=== PATIENT | female | born 1975 | race Caucasian/White ===

== ENCOUNTER → 2017-02-20 | Outpatient (CLI) | payer OTHER ==
[2016-03-02 22:00] VITALS: BP 120/69
--- NOTE | 2017-02-20 16:44 | RAD ---
DATE: 02/20/2017 EXAM: MAMMO MARCIE SCREENING BILATERAL HISTORY: Routine screening, family history of breast cancer COMPARISON: 01/26/2016 This study was interpreted with the benefit of Computerized Aided Detection (CAD). FINDINGS: The breast parenchyma demonstrates scattered fibroglandular densities, category B. There are no dominant suspicious masses, suspicious microcalcifications or evidence of architectural distortion. IMPRESSION: Negative mammogram BI-RADS CATEGORY: 1 NEGATIVE RECOMMENDED FOLLOW-UP: 12M 12 MONTH FOLLOW-UP PQRS compliance statement: Patient information was entered into a reminder system with a target due date 02/20/2018 for the next mammogram. Mammography is a sensitive method for finding small breast cancers, but it does not detect them all and is not a substitute for careful clinical examination. A negative mammogram does not negate a clinically suspicious finding and should not result in delay in biopsying a clinically suspicious abnormality. "Our facility is accredited by the [employer] Mammography [employer]."
== END | disposition home or self-care (01) ==
LOC: MAMMO 14:57
PROVIDERS: ATTEND Family Medicine
DX: Z12.31 Encounter for screening mammogram for malignant neoplasm of breast (principal)
CPT/HCPCS: 77063; G0202; 77067

== ENCOUNTER → 2017-02-24 | Outpatient (CLI) | payer OTHER ==
[2016-03-02 22:00] VITALS: BP 120/69
--- NOTE | 2017-02-24 10:58 | RAD ---
Chest, 2 views, 02/24/2017: History: Cough, congestion The heart size and pulmonary vascularity are normal. No pulmonary infiltrates are seen. There is no evidence of pleural fluid. Minimal spurring is present in the spine. IMPRESSION: No acute cardiopulmonary abnormality is detected.
== END | disposition home or self-care (01) ==
LOC: DXRAD 10:16
PROVIDERS: ATTEND Physician Assistant
DX: R05 Cough (principal)
CPT/HCPCS: 71020

== ENCOUNTER 2017-12-17 17:42 | Emergency (ER) | payer OTHER ==
[2017-12-17] MEDS ORDERED: CYCL-331 PO (18:31)
--- NOTE | 2017-12-17 18:31 | PHYS DOC ---
Past History Past Medical History: No Pertinent History Past Surgical History: Other Alcohol Use: None Drug Use: None Adult General Chief Complaint Chief Complaint: BACK PAIN OR INJURY HPI HPI Patient is a 42 year old female who presents with complaint of lower back pain and muscle spasm. The patient states that she was rearranging a fern yesterday and started to notice soreness in her back. Patient states that this morning at 3 AM she awoke and attempted to go to the bathroom but felt a sudden spasm in her low back. Patient states that she has history of degenerative joint disease in her lumbar and sacral spine. The patient states that she has received spinal injections in the past. Patient states that she has not had problems with muscle spasms for at least a couple years but states that this episode feels very consistent with prior episodes. Patient denies any loss of feeling in the lower extremities and denies any loss of bowel or bladder control. Patient states that she took ibuprofen at home with minimal relief in symptoms. Patient rates her current pain level as 7 out of 10. Patient states that the pain does worsen when she walks or moves. Review of Systems Review of Systems Constitutional: Denies fever or chills [] Eyes: Denies change in visual acuity, redness, or eye pain [] HENT: Denies nasal congestion or sore throat [] Respiratory: Denies cough or shortness of breath [] Cardiovascular: Denies chest pain or edema[] GI: Denies abdominal pain, nausea, vomiting, bloody stools or diarrhea [] : Denies dysuria or hematuria [] Musculoskeletal: Low back pain[] Integument: Denies rash or skin lesions [] Neurologic: Denies headache, focal weakness or sensory changes [] All other systems were reviewed and found to be within normal limits, except as documented in this note. Allergies Allergies Allergies Coded Allergies Type Severity Reaction Last Updated Verified Penicillins Allergy Unknown 03/02/16 Yes aripiprazole Allergy Unknown 03/02/16 Yes celecoxib Allergy Unknown 03/02/16 Yes lamotrigine Allergy Unknown 03/02/16 Yes Physical Exam Physical Exam Constitutional: Alert, afebrile, appears in [id number] discomfort. [] HENT: Normocephalic, atraumatic, bilateral external ears normal, oropharynx moist, no oral exudates, nose normal. [] Eyes: PERRLA, EOMI, conjunctiva normal, no discharge. [] Neck: Normal range of motion, no tenderness, supple, no stridor. [] Cardiovascular:Heart rate regular rhythm, no murmur [] Lungs & Thorax: Bilateral breath sounds clear to auscultation [] Abdomen: Bowel sounds normal, soft, no tenderness, no masses, no pulsatile masses. [] Skin: Warm, dry, no erythema, no rash. [] Back: No midline tenderness, bilateral paraspinous muscle tenderness in the lower lumbar spine, no flank ecchymosis. [] Extremities: No tenderness, no cyanosis, no clubbing, ROM intact, no edema. [] Neurologic: Alert and oriented X 3, normal motor function, normal sensory function, no focal deficits noted. [] Current Patient Data Vital Signs Vital Signs Date Time Temp Pulse Resp B/P (MAP) Pulse Ox O2 Delivery O2 Flow Rate FiO2 12/17/17 18:55 64 18 109/56 (73) 93 Room Air 12/17/17 17:48 98.0 Lab Results Not performed EKG EKG Not performed[] Radiology/Procedures Radiology/Procedures Not performed[] Course & Med Decision Making Course & Med Decision Making Pertinent Labs and Imaging studies reviewed. (See chart for details) The patient was treated with IM Norflex and Decadron in the emergency department. The patient will be prescribed oral Flexeril and patient was instructed to take 600 mg of ibuprofen every 6 hours over the next 3 days for symptoms. The patient was advised follow-up with her primary doctor in 3 days for reevaluation and return to emergency department for any worsening symptoms. Patient voiced understanding and in agreement with treatment plan. Dragon Disclaimer Dragon Disclaimer This electronic medical record was generated, in whole or in part, using a voice recognition dictation system. Departure Departure: Impression: Primary Impression: Acute low back pain Disposition: 01 HOME, SELF-CARE Condition: IMPROVED Referrals: LYUDMILA ROBERTS DO (PCP) Patient Instructions: Back Pain, Adult Additional Instructions: Follow-up in 3 days with your primary doctor for reevaluation. You may take 600 mg of ibuprofen every 6 hours while awake for the next 3 days to help reduce inflammation in her lower back. Return to the emergency department for any worsening symptoms. Scripts Cyclobenzaprine Hcl (CYCLOBENZAPRINE HCL) 10 Mg Tablet 1 TAB PO TID Y for MUSCLE SPASMS, #30 TAB Prov: PARKER AMOR MD 12/17/17 Problem Qualifiers Primary Impression: Acute low back pain Back pain laterality: bilateral Sciatica presence: without sciatica Qualified Codes: M54.5 - Low back pain PARKER AMOR MD Dec 17, 2017 18:31
[2017-12-17 18:55] VITALS: BP 109/56
[2017-12-17] MEDS ORDERED: ORPHENADRINE CITRATE 60 MG/2 ML VIAL. IM ONE (19:00)
[2017-12-17] MEDS ORDERED: DEXAMETHASONE SOD PHOS 10 MG/ML VIAL IM ONE (19:00)
== END 2017-12-17 18:55 | disposition home or self-care (01) ==
LOC: ER 17:42
DX: M54.5 Low back pain (principal); Z88.0 Allergy status to penicillin; Z88.8 Allergy status to other drugs, medicaments and biological substances; Z88.1 Allergy status to other antibiotic agents
CPT/HCPCS: 96372; 99284; J1100; J2360

== ENCOUNTER → 2018-01-24 | Outpatient (CLI) | payer OTHER ==
[~2018-01-24] MED LIST: CYCL-331 PO
--- NOTE | 2018-01-24 13:44 | RAD ---
DATE: 01/24/2018 EXAM: MAMMO MARCIE SCREENING BILATERAL HISTORY: Screening Mammogram COMPARISON: Screening mammogram 02/20/2017, 01/26/2016, 02/06/2014 This study was interpreted with the benefit of Computerized Aided Detection (CAD). The breast parenchyma shows scattered fibroglandular densities. Breast parenchyma level B. FINDINGS: Bilateral digital 2-D and 3-D tomosynthesis CC and MLO views. No suspicious mass, calcification or architectural distortion. No significant change from prior examination IMPRESSION: No mammographic evidence of malignancy. Recommend routine screening mammogram in 12 months. BI-RADS CATEGORY: 1 NEGATIVE RECOMMENDED FOLLOW-UP: 12M 12 MONTH FOLLOW-UP PQRS compliance statement: Patient information was entered into a reminder system with a target due date for the next mammogram. Mammography is a sensitive method for finding small breast cancers, but it does not detect them all and is not a substitute for careful clinical examination. A negative mammogram does not negate a clinically suspicious finding and should not result in delay in biopsying a clinically suspicious abnormality. "Our facility is accredited by the [employer] Mammography [employer]."
== END | disposition home or self-care (01) ==
LOC: MAMMO 12:46
PROVIDERS: ATTEND Family Medicine
DX: Z12.31 Encounter for screening mammogram for malignant neoplasm of breast (principal)
CPT/HCPCS: 77063; 77067

== ENCOUNTER → 2019-01-05 | Outpatient (CLI) | payer OTHER ==
--- NOTE | 2019-01-05 10:29 | RAD ---
CT Abdomen and Pelvis without contrast History: Left flank pain, hematuria Technique: Noncontrast CT imaging was performed of the abdomen and pelvis. Multiplanar images are reviewed. Exposure: One or more of the following individualized dose reduction techniques were utilized for this examination: 1. Automated exposure control 2. Adjustment of the mA and/or kV according to patient size 3. Use of iterative reconstruction technique. Comparison: None Findings: No urolithiasis or hydronephrosis is identified. Accurate evaluation of abdominal visceral organs is limited without intravenous contrast. There is no obvious abnormality of the spleen, liver, or pancreas. There has been cholecystectomy. There is no adrenal nodularity. Accurate evaluation of bowel is limited without oral contrast. Normal appendix is visualized. There is no significant free air, free fluid, bowel dilatation. There is IUD present in the uterus. There is moderate to severe L4-5 degenerative disc disease, also likely bulge at this level. Impression: 1. There is no urolithiasis or hydronephrosis, no significant acute abnormality identified. Electronically signed by: Skip Anthony MD (01/05/2019 10:26 AM) [facility]
== END | disposition home or self-care (01) ==
LOC: CT 10:01
PROVIDERS: ATTEND Physician Assistant Medical
DX: R31.9 Hematuria, unspecified (principal); R10.9 Unspecified abdominal pain; M51.36 Other intervertebral disc degeneration, lumbar region; Z90.49 Acquired absence of other specified parts of digestive tract
CPT/HCPCS: 74176; 87086

== ENCOUNTER → 2019-01-17 | Outpatient (CLI) | payer OTHER ==
--- NOTE | 2019-01-17 12:52 | RAD ---
DATE: 01/17/2019 EXAM: MAMMO MARCIE SCREENING BILATERAL HISTORY: Annual screening COMPARISON: 01/26/2016, 02/20/2017, 01/24/2018 mammographic exams This study was interpreted with the benefit of Computerized Aided Detection (CAD). Breast Density: SCATTERED The breast parenchyma shows scattered fibroglandular densities. Breast parenchyma level B. FINDINGS: Benign-appearing lymph nodes are present at the left upper outer and axillary region. No suspicious masses or distortion. No suspicious calcifications. IMPRESSION: Stable benign findings. BI-RADS CATEGORY: 1 NEGATIVE RECOMMENDED FOLLOW-UP: 12M 12 MONTH FOLLOW-UP PQRS compliance statement: Patient information was entered into a reminder system with a target due date in one year for the next mammogram. Mammography is a sensitive method for finding small breast cancers, but it does not detect them all and is not a substitute for careful clinical examination. A negative mammogram does not negate a clinically suspicious finding and should not result in delay in biopsying a clinically suspicious abnormality. "Our facility is accredited by the [employer] Mammography Program."
== END | disposition home or self-care (01) ==
LOC: MAMMO 10:43
PROVIDERS: ATTEND Family Medicine
DX: Z12.31 Encounter for screening mammogram for malignant neoplasm of breast (principal); R92.8 Other abnormal and inconclusive findings on diagnostic imaging of breast
CPT/HCPCS: 77063; 77067

== ENCOUNTER → 2019-01-30 | Outpatient (CLI) | payer OTHER ==
[2019-01-30 14:16] LABS: MONONUCLEOSIS PATIENT NEGATIVE (NEGATIVE)
== END | disposition home or self-care (01) ==
LOC: LAB 12:47
PROVIDERS: ATTEND Physician Assistant
DX: J02.9 Acute pharyngitis, unspecified (principal)
CPT/HCPCS: 86308

== ENCOUNTER → 2019-11-29 | Outpatient (CLI) | payer OTHER | END | disposition home or self-care (01) | LOC: LAB 08:10 | PROVIDERS: ATTEND Family Medicine | DX: Z68.34 Body mass index [BMI] 34.0-34.9, adult (principal) | CPT/HCPCS: 80061 ==

== ENCOUNTER → 2020-03-03 | Outpatient (CLI) | payer OTHER | END | disposition home or self-care (01) | LOC: LAB 13:30 | PROVIDERS: ATTEND Internal Medicine Cardiovascular Disease | DX: Z20.828 Contact with and (suspected) exposure to other viral communicable diseases (principal); R06.02 Shortness of breath; R53.83 Other fatigue; R07.9 Chest pain, unspecified | CPT/HCPCS: C9803; U0003 ==

== ENCOUNTER → 2020-03-26 | Outpatient (CLI) | payer OTHER ==
--- NOTE | 2020-03-26 10:28 | RAD ---
DATE: 03/26/2020 9:38 AM EXAM: MAMMO MARCIE SCREENING BILATERAL HISTORY: Screening COMPARISON: 01/17/2019 Bilateral CC and MLO views of the breasts were performed. Bilateral breast tomosynthesis was performed in CC and MLO projections. This study was interpreted with the benefit of Computerized Aided Detection (CAD). FINDINGS: Breast Density: FATTY The Breast Parenchyma is primarily fatty replaced. Breast parenchyma level density A. No suspicious masses, microcalcifications or architectural distortion is present to suggest malignancy in either breast. The visualized axillae are unremarkable. IMPRESSION: No mammographic evidence of malignancy. BI-RADS CATEGORY: 1 NEGATIVE RECOMMENDED FOLLOW-UP: 12M 12 MONTH FOLLOW-UP Annual screening mammography is recommended, unless clinically indicated sooner based on symptoms or change in physical exam. PQRS compliance statement: Patient information was entered into a reminder system with a target due date 03/27/2021 for the next mammogram. Mammography is a sensitive method for finding small breast cancers, but it does not detect them all and is not a substitute for careful clinical examination. A negative mammogram does not negate a clinically suspicious finding and should not result in delay in biopsying a clinically suspicious abnormality. "Our facility is accredited by the [employer] Mammography [employer]."
== END ==
LOC: MAMMO 08:59
PROVIDERS: ATTEND Family Medicine
DX: Z12.31 Encounter for screening mammogram for malignant neoplasm of breast (principal)
CPT/HCPCS: 77063; 77067

== ENCOUNTER → 2020-04-22 | Outpatient (CLI) | payer OTHER | END | disposition home or self-care (01) | LOC: LAB 13:01 | PROVIDERS: ATTEND Internal Medicine Cardiovascular Disease | DX: Z20.828 Contact with and (suspected) exposure to other viral communicable diseases (principal) | CPT/HCPCS: 36415; U0003-CS ==

== ENCOUNTER → 2020-04-29 | Outpatient (CLI) | payer OTHER ==
[~2020-04-29] MED LIST changes: +CYCL5TAB PO; +LIDO1ADH63 TP; +METH8TAB3 PO
== END | disposition home or self-care (01) ==
LOC: LAB 10:58
PROVIDERS: ATTEND Internal Medicine Cardiovascular Disease
DX: Z20.828 Contact with and (suspected) exposure to other viral communicable diseases (principal)
CPT/HCPCS: C9803; U0003; 36415

== ENCOUNTER 2020-05-17 10:47 | Emergency (ER) | payer OTHER ==
[~2020-05-17] VITALS: Ht 167.6 cm; Wt 93.8 kg
[~2020-05-17 10:47] MED LIST changes: -CYCL5TAB PO; -LIDO1ADH63 TP; -METH8TAB3 PO
[2020-05-17 10:55] VITALS: BP 108/66
--- NOTE | 2020-05-17 11:36 | PHYS DOC ---
Past History Past Medical History: No Pertinent History Past Surgical History: Cholecystectomy, Tonsillectomy, Other Additional Past Surgical Histo: SKULL FX W/SUBARACHNOID BLEED Additional Smoking Information: PACK/DAY Alcohol Use: Rarely Drug Use: None General Adult EDM: Chief Complaint: BACK PAIN OR INJURY HPI: HPI: The history was obtained from the patient. Patient is a 44-year-old female with PMH chronic back pain who presents with a chief complaint of right thoracic back pain. States the pain began yesterday after she bent down to steel pickler her dog leash. She states she has experienced this pain multiple times in the past. She states that she does have a history of MRI confirming disc bulging at L4-L5 interspace. She states she is not currently being evaluated for surgical correc tion. She denies any syncope. She states movement seems to make the pain worse. She did try 1 [place] tablet at home with minimal relief. States she is able to ambulate but it is somewhat difficult. States the pain starts in her right thoracic region radiates down her right leg. Denies trauma or fall. No other complaints. Patient denies any urinary retention, stool incontinence, saddle anesthesia, history of IV drug use, or history of cancer. Review of Systems: Review of Systems: Constitutional: Denies fever or chills Eyes: Denies change in visual acuity HENT: Denies nasal congestion or sore throat Respiratory: Denies cough or shortness of breath Cardiovascular: Denies chest pain or edema GI: Denies abdominal pain, nausea, vomiting, bloody stools or diarrhea : Denies dysuria Musculoskeletal: Positive for back pain Integument: Denies rash Neurologic: Denies headache, focal weakness or sensory changes Endocrine: Denies polyuria or polydipsia Lymphatic: Denies swollen glands Psychiatric: Denies depression or anxiety Heart Score: Risk Factors: Risk Factors: DM, Current or recent (<one month) smoker, HTN, HLP, family history of CAD, obesity. Risk Scores: Score 0 - 3: 2.5% MACE over next 6 weeks - Discharge Home Score 4 - 6: 20.3% MACE over next 6 weeks - Admit for Clinical Observation Score 7 - 10: 72.7% MACE over next 6 weeks - Early Invasive Strategies Current Medications: Current Meds: Current Medications Medications (Trade) Dose Ordered Sig/Lana Start Time Stop Time Status Last Admin Dose Admin Acetaminophen/ Hydrocodone Bitart (Lortab 10/325) 2 tab 1X ONCE 05/17/20 11:45 05/17/20 11:46 UNV Cyclobenzaprine HCl (Flexeril) 10 mg 1X ONCE 05/17/20 11:45 05/17/20 11:46 UNV Lidocaine (Lidoderm) 1 patch 1X 05/17/20 11:45 UNV Methylprednisolone (Medrol) 32 mg 1X ONCE 05/17/20 11:45 05/17/20 11:46 UNV Allergies: Allergies: Allergies Coded Allergies Type Severity Reaction Last Updated Verified Penicillins Allergy Unknown 03/02/16 Yes aripiprazole Allergy Unknown 03/02/16 Yes celecoxib Allergy Unknown 03/02/16 Yes lamotrigine Allergy Unknown 03/02/16 Yes Physical Exam: PE: Constitutional: Well developed, well nourished, no acute distress, non-toxic appearance. [] HENT: Normocephalic, atraumatic, bilateral external ears normal, oropharynx moist, no oral exudates, nose normal. [] Eyes: PERRLA, EOMI, conjunctiva normal, no discharge. [] Neck: Normal range of motion, no tenderness, supple, no stridor. [] Cardiovascular:Heart rate regular rhythm, no murmur [] Lungs & Thorax: Bilateral breath sounds clear to auscultation [] Abdomen: Bowel sounds normal, soft, no tenderness, no masses, no pulsatile masses. [] Skin: Warm, dry, no erythema, no rash. [] Back: Mild right paraspinal thoracic tenderness noted. + 5/5 motor strength in dorsiflexion and plantarflexion of the great toes bilaterally. Sensation intact between the webbing of the first and second toes bilaterally. Extremities: No tenderness, no cyanosis, no clubbing, ROM intact, no edema. [] Neurologic: Alert and oriented X 3, normal motor function, normal sensory function, no focal deficits noted. [] Psychologic: Affect normal, judgement normal, mood normal. [] Current Patient Data: Vital Signs: Vital Signs Date Time Temp Pulse Resp B/P (MAP) Pulse Ox O2 Delivery O2 Flow Rate FiO2 05/17/20 10:55 97.9 72 16 108/66 (80) 99 Room Air EKG: EKG: [] Radiology/Procedures: Radiology/Procedures: [] Course & Med Decision Making: Course & Med Decision Making Pertinent Labs and Imaging studies reviewed. (See chart for details) Patient is a well-appearing 44-year-old female presents with chief complaint of acute on chronic back pain. No red flag signs or symptoms regarding her back pain. Patient was treated symptomatically. On repeat examination she states her symptoms are much improved. Her repeat examination remains stable. She has been able to ambulate. She is appropriate for discharge home. Return precautions discussed and understood. Instructed to follow-up with her primary care physician in the next 2 to 3 days. Stable for discharge home. Dragon Disclaimer: Dragon Disclaimer: This electronic medical record was generated, in whole or in part, using a voice recognition dictation system. Departure Departure: Impression: Primary Impression: Thoracic back pain Qualified Codes: M54.6 - Pain in thoracic spine Disposition: HOME/RESIDENCE PRIOR TO ADM Condition: STABLE Referrals: DAVINA JACK MD (PCP) Patient Instructions: Back Exercises Additional Instructions: Please follow-up with your primary care physician in the next week. Scripts Lidocaine (Lidocaine) 1 Each Adh..patch 1 EACH TP DAILY PRN for pain, #5 PATCH Prov: LUCIO MELLO DO 05/17/20 Cyclobenzaprine Hcl (CYCLOBENZAPRINE HCL) 5 Mg Tablet 5 MG PO TID PRN PRN for PAIN, #9 TAB Prov: LUCIO MELLO DO 05/17/20 Methylprednisolone (METHYLPREDNISOLONE) 8 Mg Tablet 8 MG PO DAILY for pain, #36 TAB Prov: LUCIO MELLO DO 05/17/20 Justification of Admission: Justification of Admission: Justification of Admission Dx: N/A LUCIO MELLO DO May 17, 2020 11:36
[2020-05-17] MEDS ORDERED: HYDROcodone/APAP 10/325 1 TAB TABLET PO ONE (11:45)
[2020-05-17] MEDS ORDERED: LIDOCAINE (700MG/PATCH) PATCH. TD SCH (11:45)
[2020-05-17] MEDS ORDERED: CYCLOBENZAPRINE 10 MG TABLET. PO ONE (11:45)
[2020-05-17] MEDS ORDERED: methylPREDNISolone 4 MG TABLET. PO ONE (12:00)
[2020-05-17] MEDS ORDERED: METH8TAB3 PO (12:22)
[2020-05-17] MEDS ORDERED: LIDO1ADH63 TP (12:22)
[2020-05-17] MEDS ORDERED: CYCL5TAB PO (12:22)
== END 2020-05-17 12:45 | disposition home or self-care (01) ==
LOC: ER 10:47
DX: M54.6 Pain in thoracic spine (principal); G89.29 Other chronic pain; F17.200 Nicotine dependence, unspecified, uncomplicated; Z90.49 Acquired absence of other specified parts of digestive tract; Z88.0 Allergy status to penicillin; Z88.8 Allergy status to other drugs, medicaments and biological substances
CPT/HCPCS: 99284; J7509

== ENCOUNTER → 2020-06-29 | Outpatient (CLI) | payer OTHER ==
[~2020-06-29] MED LIST changes: +CYCL5TAB PO; +LIDO1ADH63 TP; +METH8TAB3 PO
== END | disposition home or self-care (01) ==
LOC: LAB 10:51
PROVIDERS: ATTEND Internal Medicine Cardiovascular Disease
DX: Z20.828 Contact with and (suspected) exposure to other viral communicable diseases (principal)
CPT/HCPCS: U0003-CS

== ENCOUNTER → 2021-01-15 | Outpatient (CLI) | payer OTHER ==
--- NOTE | 2021-01-15 15:04 | RAD ---
Examination: CT of the abdomen pelvis without contrast HISTORY: History of left flank pain COMPARISON: 11/21/2018 TECHNIQUE: Axial CT images of the abdomen pelvis were performed without contrast. Coronal and sagitta l reformats are performed Exposure: One or more of the following individualized dose reduction techniques were utilized for thi s examination: 1. Automated exposure control 2. Adjustment of the mA and/or kV according to patient size 3. Use of iterative reconstruction technique FINDINGS: Mild groundglass bibasilar lung airspace opacities. No evidence of free air identified in the abdomen . The evaluation of the solid organs is limited due to lack of IV contrast. The evaluation of bowel i s limited due to lack of oral contrast. The visualized noncontrasted liver demonstrates a 1.6 cm hypodensity in the right lobe of the liver. The spleen, adrenals grossly appears unremarkable. Cholecystectomy changes identified. The stomach is mildly distended with visualized pancreas grossly appears unremarkable. The small bowel is nondilate d. The appendix is normal. Feces and gas noted in the colon. Urinary bladder is mildly distended No evidence of intrarenal collecting system calculi or hydronephrosis. Urinary bladder is mildly dist ended. Incidental contraceptive device is identified. Mild aortic atherosclerosis. IMPRESSION: 1. No evidence of intrarenal collecting system calculi or hydronephrosis. 2. Cholecystectomy changes. 3. 1.6 cm hypodensity right lobe of the liver, unchanged. Electronically signed by: Sonny Chiu MD (01/15/2021 3:01 PM) [id number]
--- NOTE | 2021-01-15 16:32 | RAD ---
Exam: CT of chest without contrast INDICATION: Shortness of breath TECHNIQUE: Sequential axial images through the chest obtained without IV contrast. Sagittal and coron al reformatted images were reconstructed from the axial data and reviewed. Comparisons: None FINDINGS: Visualized portions of the thyroid are unremarkable. No enlarged mediastinal lymph nodes are identifi ed. Heart size is normal. No pericardial effusion. Thoracic aorta has a normal course caliber. Pulmonary artery is not enlarged. Airways are patent. No consolidation or pneumothorax. No suspicious lung nodules are identified. No pleural effusion or thickening. Visualized upper abdomen is unremarkable. No suspicious osseous lesions or acute fractures. IMPRESSION: No acute process identified within the chest Exposure: One or more of the following in the visualized dose reduction techniques were utilized for this examination: 1. Automated exposure control 2. Adjustment of the MA and/or KV according to patient size 3. Use of iterative of reconstructive technique Electronically signed by: Luis Angel Perry MD (01/15/2021 4:30 PM) [facility]
== END ==
LOC: CT 13:37
PROVIDERS: ATTEND Physician Assistant Medical
DX: N32.89 Other specified disorders of bladder (principal); R10.9 Unspecified abdominal pain; I70.0 Atherosclerosis of aorta; Z90.49 Acquired absence of other specified parts of digestive tract; Z97.5 Presence of (intrauterine) contraceptive device
CPT/HCPCS: 71250; 74176

== ENCOUNTER → 2021-01-26 | Outpatient (CLI) | payer OTHER ==
[2021-01-27 01:17] LABS: ESTRADIOL LEVEL 72.2 pg/mL (.); FSH 28.5 mIU/mL (.); LUTEINIZING HORMONE 23.9 mIU/mL (.)
== END ==
LOC: LAB 14:15
PROVIDERS: ATTEND Nurse Practitioner Women's Health
DX: R23.2 Flushing (principal)
CPT/HCPCS: 36415; 82670; 83001; 83002

== ENCOUNTER → 2021-04-13 | Outpatient (CLI) | payer OTHER ==
--- NOTE | 2021-04-14 15:36 | RAD ---
MG BILAT SCREEN+MARCIE 04/13/2021 3:39 PM INDICATION: Asymptomatic screening mammogram. COMPARISON: 03/26/2020, 01/17/2019, 01/24/2018 TECHNIQUE: 3D tomosynthesis was performed in CC and MLO projections. 2D views were obtained from the 3D data. CAD was utilized as needed. FINDINGS: Breast density: Category B: There are scattered areas of fibroglandular density. Right breast: There are no suspicious microcalcifications, masses or areas of architectural distortio n. Left breast: There are no suspicious microcalcifications, masses or areas of architectural distortion . Bilateral mammogram is compared to prior examinations appears unchanged. IMPRESSION: Negative bilateral mammogram. BI-RADS category: 1; Negative Recommendations: Recommend annual screening mammography in one year. Electronically signed by: Jennifer Mon MD (04/14/2021 3:33 PM) [id number]
== END ==
LOC: MAMMO 15:23
PROVIDERS: ATTEND Family Medicine
DX: Z12.31 Encounter for screening mammogram for malignant neoplasm of breast (principal)
CPT/HCPCS: 77063; 77067

== ENCOUNTER → 2021-05-05 | Outpatient (CLI) | payer OTHER | LOC: LAB 10:00 | PROVIDERS: ATTEND Internal Medicine Cardiovascular Disease | DX: R51.9 Headache, unspecified (principal); J02.9 Acute pharyngitis, unspecified; R09.81 Nasal congestion; Z20.822 Contact with and (suspected) exposure to COVID-19 | CPT/HCPCS: 87426; U0005; U0003 ==

== ENCOUNTER → 2021-05-30 | Outpatient (CLI) | payer OTHER | LOC: LAB 13:06 | PROVIDERS: ATTEND Internal Medicine Cardiovascular Disease | DX: Z20.822 Contact with and (suspected) exposure to COVID-19 (principal) | CPT/HCPCS: U0003 ==

== ENCOUNTER 2021-07-11 19:57 | Emergency (ER) | payer OTHER ==
[~2021-07-11] VITALS: Ht 167.6 cm; Wt 98.7 kg
[2021-07-11 20:17] VITALS: BP 161/83
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
[2021-07-11] MEDS ORDERED: HYDROcodone/APAP 5/325MG 1 TAB TABLET PO ONE (22:00)
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
== END 2021-07-11 22:09 | disposition home or self-care (01) ==
LOC: ER 19:57
DX: R51.9 Headache, unspecified (principal); M25.551 Pain in right hip; Z88.0 Allergy status to penicillin; Z88.8 Allergy status to other drugs, medicaments and biological substances; V43.52XA Car driver injured in collision with other type car in traffic accident, initial encounter; Y93.I9 Activity, other involving external motion; Y92.89 Other specified places as the place of occurrence of the external cause; Y99.8 Other external cause status
CPT/HCPCS: 70450; 72125; 73502; 99285-25

== ENCOUNTER 2021-07-14 14:22 | Emergency (ER) | payer OTHER ==
[~2021-07-14] VITALS: Ht 167.6 cm; Wt 97.2 kg
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
[2021-07-14] MEDS ORDERED: KETOROLAC 60 MG/2 ML VIAL. IM ONE (16:00)
[2021-07-14] MEDS ORDERED: PROMETHAZINE 25 MG TABLET. PO ONE (16:00)
[2021-07-14 16:07] VITALS: BP 127/56
== END 2021-07-14 16:41 | disposition home or self-care (01) ==
LOC: ER 14:22
DX: S70.01XD Contusion of right hip, subsequent encounter (principal); G44.309 Post-traumatic headache, unspecified, not intractable; F07.81 Postconcussional syndrome; F17.200 Nicotine dependence, unspecified, uncomplicated; Z88.0 Allergy status to penicillin; Z88.8 Allergy status to other drugs, medicaments and biological substances; V43.92XD Unspecified car occupant injured in collision with other type car in traffic accident, subsequent encounter
CPT/HCPCS: 70450; 96372; 99284; J1885; Q0169

== ENCOUNTER → 2021-09-16 | Outpatient (CLI) | payer OTHER ==
[~2021-09-16] MED LIST changes: -CYCL-331 PO; +CYCL10TA19 PO
== END ==
LOC: LAB 08:53
PROVIDERS: ATTEND Internal Medicine Cardiovascular Disease
DX: R09.81 Nasal congestion (principal); Z20.822 Contact with and (suspected) exposure to COVID-19
CPT/HCPCS: 87426; U0003

== ENCOUNTER → 2021-10-18 | Outpatient (CLI) | payer OTHER | LOC: LAB 07:13 | PROVIDERS: ATTEND Internal Medicine Cardiovascular Disease | DX: R05.9 Cough, unspecified (principal); R51.9 Headache, unspecified; J02.9 Acute pharyngitis, unspecified; R09.81 Nasal congestion; Z20.822 Contact with and (suspected) exposure to COVID-19 | CPT/HCPCS: U0003 ==

== ENCOUNTER → 2021-10-21 | Outpatient (CLI) | payer OTHER | LOC: LAB 16:23 | PROVIDERS: ATTEND Internal Medicine Cardiovascular Disease | DX: R51.9 Headache, unspecified (principal); R09.81 Nasal congestion; J02.9 Acute pharyngitis, unspecified; Z20.822 Contact with and (suspected) exposure to COVID-19 | CPT/HCPCS: U0003 ==

== ENCOUNTER 2022-02-28 14:40 | Emergency (ER) | payer BC, OTHER ==
[~2022-02-28] VITALS: Ht 162.6 cm; Wt 98.0 kg
[2022-02-28] MEDS ORDERED: IOHEXOL 350 MG/ML 100 ML VIAL. ONE (14:50)
[2022-02-28] MEDS ORDERED: IOHEXOL 350 MG/ML 100 ML VIAL. IV ONE (15:00)
--- NOTE | 2022-02-28 15:03 | RAD ---
Exam Date: 02/28/2022 2:[address] STROKE HEAD W/O Indication: Reason: slurred speech, posterior headache / Spl. Instructions: / History: . TECHNIQUE: Head CT was performed without intravenous contrast. One or more of the following dose re duction techniques were utilized: *Automated exposure control (AEC) *Adjustment of mA and/or kV according to patient size *Use of iterative reconstruction technique *CT scan done according to ALARA, or ALARA/IMAGE GENTLY COMPARISON: July 14, 2021 FINDINGS: The ventricles and sulci are normal for the patient's stated age. There is no evidence of acute int racranial hemorrhage, extra-axial collection, mass effect, midline shift, or acute territorial infarc t. No lesion of the skull base or the calvarium is seen. The visualized paranasal sinuses, mastoid ai r cells and orbits are normal in appearance. IMPRESSION: No evidence for acute intracranial abnormality. Findings discussed with DARIUSZ DE JESUS MD at 02/28/2022 2:58 PM. FOR INTERNAL CODING PURPOSES Critical result: RESULT CODE: (C) Electronically signed by: Sonny Lance MD (02/28/2022 3:01 PM) [id number]
[2022-02-28] MEDS ORDERED: ONDANSETRON PF 4 MG/2 ML VIAL. ONE (15:05)
[2022-02-28] MEDS ORDERED: ONDANSETRON PF 4 MG/2 ML VIAL. IVP ONE (15:15)
[2022-02-28 15:22] LABS: CALCIUM 8.8 mg/dL (8.5-10.1); CREATININE 0.7 mg/dL (0.6-1.0); GFR 89.3; POTASSIUM 4.6 mmol/L (3.5-5.1)
[2022-02-28 15:28] LABS: BASO # 0.2 x10^3/uL (0.0-0.2); BASO % 1 % (0-3); EOS # 0.1 x10^3/uL (0.0-0.7); EOS % 1 % (0-3); HEMATOCRIT 38.5 % (36.0-47.0); HEMOGLOBIN 13.1 g/dL (12.0-15.5); LYMPH # 2.5 x10^3/uL (1.0-4.8); LYMPH % 17 % (24-48); MEAN CORPUSCULAR HEMOGLOBIN 31 pg (25-35); MEAN CORPUSCULAR HGB CONC 34 g/dL (31-37); MEAN CORPUSCULAR VOLUME 92 fL (79-100); MONO % 7 % (0-9); NEUT # 11.2 x10^3uL (1.8-7.7); NEUT % 75 % (31-73); PLATELET COUNT 306 x10^3/uL (140-400); RED BLOOD COUNT 4.21 x10^6/uL (3.50-5.40); RED CELL DISTRIBUTION WIDTH 14.3 % (11.5-14.5)
--- NOTE | 2022-02-28 15:37 | PHYS DOC ---
Past History Past Medical History: Other Additional Past Medical Histor: SUBARACHNOID BLEED 20 YEARS AGO Past Surgical History: Other Additional Past Surgical Histo: SKULL FX W/SUBARACHNOID BLEED Alcohol Use: Rarely Drug Use: None General Adult EDM: Chief Complaint: DIZZY/LIGHT HEADED HPI: HPI: Patient is a 46-year-old female coming in for headache, right eye blurred vision, slurred speech. Patient had been in a computer class for about 3 hours and the symptoms started. Patient states the occipital headache was very quick in onset. Patient has a history of migraines with occasional scotomas. She describes the vision loss as blurring of the peripheral vision that went away before the headache started. Patient got Botox injections 2 weeks ago for her migraines. Patient has been having chronic daily headaches after concussion she received in July (about 7 months ago), and is currently seeing a concussion specialist. She is taking meloxicam, tizanidine, and amitriptyline with some improvement. Patient states that during the headache onset she had some vertigo and chest pain symptoms that have resolved now. Patient states she has a history of vertigo but not usually in association with her migraines. Patient states her migraines are usually unilateral. Denies any recent illness, fevers, or recent head trauma. Patient does indicate that she has had increased stressors at work. Review of Systems: Review of Systems: All other systems within normal limits except for as noted in the HPI Current Medications: Current Meds: Current Medications Medications (Trade) Dose Ordered Sig/Lana Start Time Stop Time Status Last Admin Dose Admin Iohexol (Omnipaque 350 Mg/ml) 100 ml 1X ONCE 02/28/22 15:00 02/28/22 15:08 DC 02/28/22 15:03 100 ML Ondansetron HCl (Zofran) 4 mg 1X ONCE 02/28/22 15:15 02/28/22 15:16 DC Allergies: Allergies: Allergies Coded Allergies Type Severity Reaction Last Updated Verified Penicillins Allergy Unknown 03/02/16 Yes aripiprazole Allergy Unknown 03/02/16 Yes celecoxib Allergy Unknown 03/02/16 Yes lamotrigine Allergy Unknown 03/02/16 Yes Physical Exam: PE: Constitutional: Well developed, well nourished, no acute distress, non-toxic appearance. [] HENT: Normocephalic, atraumatic, bilateral external ears normal, nose normal. [] Eyes: PERRLA, conjunctiva normal, no discharge. [] Neck: No rigidity, supple, no stridor. [] Cardiovascular: Regular rate and rhythm, brisk cap refill [] Lungs & Thorax: Non labored symmetric respirations, no tachypnea or respiratory distress [] Abdomen: Soft, nondistended. Skin: Warm, dry, no erythema, no rash. [] Back: Unremarkable Extremities: No deformities, range of motion grossly intact, no lower extremity edema [] Neurologic: Alert and oriented X 3, no focal deficits noted. [] Psychologic: Affect normal, judgement normal, mood normal. [] EKG: EKG: Sinus rhythm, heart rate 70 bpm, normal axis, no STEMI, normal intervals, no ectopy. [] Radiology/Procedures: Radiology/Procedures: [address] [address] IMAGING REPORT Signed PATIENT: BOZENA BARRETT KACCOUNT: [id number] : 1975 LOCATION: ER AGE: 46 SEX: F EXAM STATUS: REG ER ORD. PHYSICIAN: DARIUSZ DE JESUS MD REASON: right eye vision loss PROCEDURE: CT ANGIOGRAPHY HEAD AND NECK CTA HEAD AND NECK W/WO CONTRAST History:Reason: right eye vision loss / Spl. Instructions: / History: Technique: After bolus of intravenous contrast, volumetric CT data acquisition was acquired of the head and neck. Multiplanar reconstruction images to include MIP and 3-D reconstruction images are submitted. Exposure: One or more of the following individualized dose reduction techniques were utilized for this examination: 1. Automated exposure control 2. Adjustment of the mA and/or kV according to patient size 3. Use of iterative reconstruction technique. Comparison: CT head noncontrast February 28, 2022 Any determination of stenosis is based on NASCET criteria. Head CTA: ICA: No stenosis or occlusion. 2 mm right paraclinoid posterior communicating artery origin infundibulum. MCA: No stenosis, occlusion or aneurysm. PADMINI: No stenosis, occlusion or aneurysm. [employer]: No stenosis, occlusion or aneurysm. Basilar artery: No stenosis, occlusion or aneurysm. Distal vertebral arteries: No stenosis, occlusion or aneurysm. Patent superior sagittal, straight, right transverse and sigmoid venous sinuses. 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 CT angiogram neck: Aortic arch: Conventional arch anatomy. Common carotid arteries: No stenosis, occlusion or dissection. Internal carotid arteries: No stenosis, occlusion or dissection. External carotid arteries: Patent Vertebral arteries: No stenosis, occlusion or dissection. Calcified right upper lobe pulmonary nodules, likely prior granulomatous disease. Soft tissues appear normal. Bones: No pathologic osseous lesions. Impression: 1. No arterial stenosis or occlusion within the head or neck. FOR INTERNAL CODING PURPOSES Critical result: Findings discussed with DARIUSZ DE JESUS MD at 02/28/2022 3:45 PM. RESULT CODE: (C) Electronically signed by: Yahir Cruz DO (02/28/2022 3:54 PM) [id number] DICTATED AND SIGNED BY: YAHIR CRUZ DO DATE: 02/28/22 1534 CC: DARIUSZ DE JESUS MD; DAVINA JACK MD ~ [][address] [address] IMAGING REPORT Signed PATIENT: BOZENA BARRETTCCOUNT: [id number] : 1975 LOCATION: ER AGE: 46 SEX: F EXAM STATUS: REG ER ORD. PHYSICIAN: DARIUSZ DE JESUS MD REASON: slurred speech, posterior headache PROCEDURE: CT CODE STROKE HEAD WO Exam Date: 02/28/2022 2:[address] STROKE HEAD W/O Indication: Reason: slurred speech, posterior headache / Spl. Instructions: / History: . TECHNIQUE: Head CT was performed without intravenous contrast. One or more of the following dose reduction techniques were utilized: *Automated exposure control (AEC) *Adjustment of mA and/or kV according to patient size *Use of iterative reconstruction technique *CT scan done according to ALARA, or ALARA/IMAGE GENTLY COMPARISON: July 14, 2021 FINDINGS: The ventricles and sulci are normal for the patient's stated age. There is no evidence of acute intracranial hemorrhage, extra-axial collection, mass effect, midline shift, or acute territorial infarct. No lesion of the skull base or the calvarium is seen. The visualized paranasal sinuses, mastoid air cells and orbits are normal in appearance. IMPRESSION: No evidence for acute intracranial abnormality. Findings discussed with DARIUSZ DE JESUS MD at 02/28/2022 2:58 PM. FOR INTERNAL CODING PURPOSES Critical result: RESULT CODE: (C) Electronically signed by: Doug Lance MD (02/28/2022 3:01 PM) [id number] DICTATED AND SIGNED BY: DOUG LANCE MD DATE: 02/28/22 1458 CC: DARIUSZ DE JESUS MD; DAVINA JACK MD ~ Heart Score: C/O Chest Pain: Yes HEART Score for Chest Pain: HEART Score for Chest Pain Response (Comments) Value History Slighlty/Non-Suspicious 0 ECG Normal 0 Age >45 - < 65 1 Risk Factors 1 or 2 Risk Factors 1 Total 2 Risk Factors: Risk Factors: DM, Current or recent (<one month) smoker, HTN, HLP, family history of CAD, obesity. Risk Scores: Score 0 - 3: 2.5% MACE over next 6 weeks - Discharge Home Score 4 - 6: 20.3% MACE over next 6 weeks - Admit for Clinical Observation Score 7 - 10: 72.7% MACE over next 6 weeks - Early Invasive Strategies Course & Med Decision Making: Course & Med Decision Making Pertinent Labs and Imaging studies reviewed. (See chart for details) Patient symptoms improved with migraine cocktail. Work-up unremarkable. Patient has follow-up in place [] Dragon Disclaimer: Dragmyriam Disclaimer: This electronic medical record was generated, in whole or in part, using a voice recognition dictation system. Departure Departure: Impression: Primary Impression: Migraine Disposition: HOME / SELF CARE / HOMELESS Condition: IMPROVED Referrals: DAVINA JACK MD (PCP) Patient Instructions: Migraine Headache DARIUSZ DE JESUS MD February 28, 2022 15:37
[2022-02-28] MEDS ORDERED: KETOROLAC 15 MG/ML VIAL. IVP ONE (15:45)
[2022-02-28] MEDS ORDERED: diphenhydrAMINE 50 MG/ML VIAL IVP ONE (15:45)
[2022-02-28] MEDS ORDERED: PROCHLORPERAZINE 10 MG/2 ML VIAL. IV ONE (15:45)
[2022-02-28] MEDS ORDERED: IV NORMAL SALINE 1,000ML 1,000 ML IV ONE (15:45)
[2022-02-28] MEDS ORDERED: DEXAMETHASONE SOD PHOS 10 MG/ML VIAL. IVP ONE (15:45)
--- NOTE | 2022-02-28 15:56 | RAD ---
CTA HEAD AND NECK W/WO CONTRAST History:Reason: right eye vision loss / Spl. Instructions: / History: Technique: After bolus of intravenous contrast, volumetric CT data acquisition was acquired of the he ad and neck. Multiplanar reconstruction images to include MIP and 3-D reconstruction images are submi tted. Exposure: One or more of the following individualized dose reduction techniques were utilized for thi s examination: 1. Automated exposure control 2. Adjustment of the mA and/or kV according to patient size 3. Use of iterative reconstruction technique. Comparison: CT head noncontrast February 28, 2022 Any determination of stenosis is based on NASCET criteria. Head CTA: ICA: No stenosis or occlusion. 2 mm right paraclinoid posterior communicating artery origin infundibu lum. MCA: No stenosis, occlusion or aneurysm. PADMINI: No stenosis, occlusion or aneurysm. GALLEY HAND: No stenosis, occlusion or aneurysm. Basilar artery: No stenosis, occlusion or aneurysm. Distal vertebral arteries: No stenosis, occlusion or aneurysm. Patent superior sagittal, straight, right transverse and sigmoid venous sinuses. Congenitally small l eft transverse and sigmoid venous sinuses. CT angiogram neck: Aortic arch: Conventional arch anatomy. Common carotid arteries: No stenosis, occlusion or dissection. Internal carotid arteries: No stenosis, occlusion or dissection. External carotid arteries: Patent Vertebral arteries: No stenosis, occlusion or dissection. Calcified right upper lobe pulmonary nodules, likely prior granulomatous disease. Soft tissues appear normal. Bones: No pathologic osseous lesions. Impression: 1. No arterial stenosis or occlusion within the head or neck. FOR INTERNAL CODING PURPOSES Critical result: Findings discussed with DARIUSZ DE JESUS MD at 02/28/2022 3:45 PM. RESULT CODE: (C) Electronically signed by: Yahir Cruz DO (02/28/2022 3:54 PM) [id number]
[2022-02-28 16:43] LABS: BACTERIA,URINE 0 /HPF (0-FEW); CLARITY,URINE CLEAR; COLOR,URINE YELLOW; GLUCOSE,URINE NEG (NEG); NITRITE,URINE NEG (NEG); RBC,URINE 0 /HPF (0-2); SQUAMOUS EPITHELIAL CELL,UR FEW /LPF; UROBILINOGEN,URINE 0.2 mg/dL (0.2 mg/dL)
[2022-02-28 17:30] VITALS: BP 112/62
== END 2022-02-28 17:45 | disposition home or self-care (01) ==
LOC: ER 14:40
DX: G43.909 Migraine, unspecified, not intractable, without status migrainosus (principal); R42 Dizziness and giddiness; R07.9 Chest pain, unspecified; Z88.0 Allergy status to penicillin; Z88.8 Allergy status to other drugs, medicaments and biological substances
CPT/HCPCS: 36415; 70450; 70496; 70498; 80048; 81001; 84484; 85025; 85610; 85730; 87086; 93005; 96361; 96374; 96375; 99285; J0780; J1100; J1200; J1885; J2405; J7030; Q9967